=== PATIENT | male | born 1990 | race Caucasian/White ===

== ENCOUNTER 2017-02-06 13:02 | Emergency (ER) | payer SELFPAY ==
[2017-02-06 13:18] VITALS: BP 121/82
--- NOTE | 2017-02-06 14:15 | EDM.PDOC ---
ED HPI GENERAL MEDICAL PROBLEM - General Chief Complaint: Lower Extremity Injury/Pain Stated Complaint: LEFT FOOT INJURY Time Seen by Provider: 02/06/17 13:59 Source of Information: Reports: Patient History Limitations: Reports: No Limitations - History of Present Illness INITIAL COMMENTS - FREE TEXT/NARRATIVE: Patient is a 26-year-old male who presents to the ED complaining of left ankle pain. Patient states this morning at approximately 4:00 accidentally stepped on a pipe rolling his ankle. Patient states his foot went outward. [place] a crack to the distal aspect of his left fibula with instant pain. Difficult to walk. Unable to weight-bear at this point. Swelling localized to the left lateral ankle. No pain noted to the proximal tib-fib. No knee pain. No additional complaints. Treatments [employer]: Reports: Other (see below) Other Treatments [employer]: ice and elevation Left Feet Pain Score (Numeric/FACES): 10 - Related Data Allergies Allergy/AdvReac Type Severity Reaction Status Date / Time No Known Allergies Allergy Verified 02/06/17 13:21 Home Meds: Home Meds . [No Known Home Meds] 02/06/17 [History] Past Medical History - Past Health History Medical/Surgical History: Denies Medical/Surgical History Musculoskeletal History: Reports: Other (See Below) Other Musculoskeletal History: right shoulder scope - Past Surgical History GI Surgical History: Reports: Appendectomy Other GI Surgeries/Procedures: some bowel removed at young age Social & Family History - Tobacco Use Smoking Status *Q: Current Every Day Smoker Years of Tobacco use: 2 Packs/Tins Daily: 1 - Caffeine Use Caffeine Use: Reports: Coffee, Soda - Recreational Drug Use Recreational Drug Use: No Review of Systems - Review of Systems Review Of Systems: ROS reveals no pertinent complaints other than HPI. ED EXAM, GENERAL - Physical Exam Exam: See Below Exam Limited By: No Limitations General Appearance: Alert, WD/WN, No Apparent Distress Ears: Hearing Grossly Normal Nose: Normal Inspection Throat/Mouth: Normal Voice, No Airway Compromise Respiratory/Chest: No Respiratory Distress, No Accessory Muscle Use Cardiovascular: Normal Peripheral Pulses, Regular Rate, Rhythm Peripheral Pulses: 2+: Posterior Tibial (L), Dorsalis Pedis (L) Extremities: Other (Swelling noted to the distal aspect of the left fibula. Pain with palpation. No bony abnormalities. Pain also with palpation of the distal tibia proximal to the foot. Decreased range of motion noted. No bony tenderness to the foot noted.) Neurological: Alert, Oriented, Normal Cognition, No Motor/Sensory Deficits Psychiatric: Normal Affect, Normal Mood Skin Exam: Warm, Dry, Intact, Normal Color Course - Vital Signs Last Recorded V/S: Last Vital Signs Temp 97.5 F 02/06/17 13:15 Pulse 106 H 02/06/17 13:15 Resp 20 02/06/17 13:15 BP 121/82 02/06/17 13:15 Pulse Ox 98 02/06/17 13:15 - Orders/Labs/Meds Orders: Active Orders 24 hr Category Date Time Status DME for Discharge [COMM] Stat Oth 02/06/17 14:46 Ordered - Re-Assessments/Exams Free Text/Narrative Re-Assessment/Exam: Ordered x-ray of the left foot. 02/06/17 14:47 x-ray of the left ankle revealed no acute bony abnormalities. Ordered crutches and Enrique wrap to be applied to the affected ankle. Will discharge patient home with instructions as documented. Departure - Departure Time of Disposition: 14:48 Disposition: Home, Self-Care 01 Condition: Good Clinical Impression: Left ankle sprain Qualifiers: Encounter type: initial encounter Involved ligament of ankle: other ligament Qualified Code(s): S93.492A - Sprain of other ligament of left ankle, initial encounter - Discharge Information Instructions: Ankle Sprain, [id number] Referrals: PCP,None [Primary Care Provider] - Forms: ED Department Discharge, ED Return to Work/School Form Additional Instructions: X-ray of the left ankle did not reveal any acute bony antibiotics. Etiology current complaint ankle sprain. Treatment is symptomatic care including: Enrique wrap, non weightbearing, Crutches to ambulate, elevate when able to reduce swelling and pain, ice to affected area 6 times daily/ 20 minutes in duration/ do not place ice directly on the skin. Refrain from any activities that cause worsening pain. Suggest nonweightbearing for the next 5 days. Can return to work in 2 days, light duty. Follow-up with occupational med provider for modification of job duties as needed. If not drastically improved with the next 7-10 days please follow up with with orthopedic surgeon for reevaluation. Take Tylenol and ibuprofen in alternating fashion for pain. Return to the ED for any new or worsening symptoms. - My Orders Last 24 Hours: My Active Orders 02/06/17 14:46 DME for Discharge [COMM] Stat - Assessment/Plan Last 24 Hours: My Active Orders 02/06/17 14:46 DME for Discharge [COMM] Stat
--- NOTE | 2017-02-06 14:41 | CR ---
Left ankle: Four views of the left ankle were obtained. Comparison: No previous study. Soft tissue swelling is identified. No fracture, dislocation or other bony abnormality is seen. Impression: 1. Soft tissue swelling. No acute bony abnormality is identified. Diagnostic code #2
== END 2017-02-06 15:05 | disposition home or self-care (01) ==
LOC: JD.ED 13:02
DX: S93.492A Sprain of other ligament of left ankle, initial encounter (principal); F17.210 Nicotine dependence, cigarettes, uncomplicated; Z90.49 Acquired absence of other specified parts of digestive tract; Z98.890 Other specified postprocedural states; X50.9XXA Other and unspecified overexertion or strenuous movements or postures, initial encounter
CPT/HCPCS: 73610-26-LT; 73610-LT; 99283; 99284